=== PATIENT | female | born 1970 | race African-American/Black ===

== ENCOUNTER 2016-10-10 07:36 | Emergency (ER) | payer OTHER ==
[~2016-10-10] VITALS: Ht 175.3 cm; Wt 127.0 kg
[2016-10-10 07:38] VITALS: BP 150/89; PULSE 87; RESP 13; TEMP 98.2; O2SAT 99
[2016-10-10] MEDS ORDERED: SODIUM CHLOR 0.9% 1000 ML INJ 1,000 ML IV ONE (07:51)
--- NOTE | 2016-10-10 07:56 | PD ---
HPI Chief Complaint: Back/ Neck Pain or Injury Time Seen by Provider: 07:45 Travel History International Travel<30 days: No Contact w/Intl Traveler<30days: No Traveled to known affect area: No History of Present Illness HPI This is a 46-year-old female presents for evaluation of left-sided lower back pain. Symptoms started spontaneously one week ago. There is no specific mechanism injury. She does report that she works as a [employer], has to do a lot of bending and lifting and pulling and pushing. 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 She denies abdominal pain, nausea or vomiting, fevers or chills, diarrhea or constipation, dysuria, hematuria, increased urinary frequency, bowel or bladder incontinence, saddle anesthesia, radicular symptoms. She tried using some ibuprofen and Flexeril yesterday however the symptoms persisted which prompted evaluation. She has no other complaints at this time. [facility] Past Medical History Medical History: Denies Significant Hx ?: Not Social History Alcohol Use: No Tobacco Use: Yes Allergies-Medications (Allergen,Severity, Reaction): Coded Allergies: No Known Allergies (Unverified , 10/01/16) Reported Meds & Prescriptions Reported Meds & Active Scripts Active Flexeril (Cyclobenzaprine HCl) 5 Mg Tab 5 Mg PO TID 7 Days Ibuprofen 800 Mg Tab 800 Mg PO Q6HR PRN Lidocaine Patch 12 HR (Lidocaine) 5 % Patch 1 Patch TOPICAL DAILY PRN Remove patch after 12 hours Keflex (Cephalexin) 500 Mg Cap 500 Mg PO Q12H 7 Days Reported Ibuprofen 600 Mg Tab 600 Mg PO Q6H PRN Review of Systems Except as stated in HPI: all other systems reviewed are Neg Physical Exam Narrative GENERAL: Well-developed well-nourished female in no acute distress SKIN: Warm and dry. HEAD: Atraumatic. Normocephalic. EYES: Pupils equal and round. No scleral icterus. No injection or drainage. ENT: No nasal bleeding or discharge. Mucous membranes pink and moist. NECK: Trachea midline. No JVD. CARDIOVASCULAR: Regular rate and rhythm. No murmur appreciated. RESPIRATORY: No accessory muscle use. Clear to auscultation. Breath sounds equal bilaterally. GASTROINTESTINAL: Abdomen soft, non-tender, nondistended. Hepatic and splenic margins not palpable. No palpable pulsatile masses. MUSCULOSKELETAL: No obvious deformities. Full muscle strength in lower extremities, there is no reproducible tenderness to palpation along the cervical thoracic or lumbar midline spine, no CVA tenderness or paravertebral tenderness to palpation. NEUROLOGICAL: Awake and alert. No obvious cranial nerve deficits. Motor grossly within normal limits. Normal speech. PSYCHIATRIC: Appropriate mood and affect; insight and judgment normal. Data Data Last Documented VS Vital Signs Date Time Temp Pulse Resp B/P (MAP) Pulse Ox O2 Delivery O2 Flow Rate FiO2 10/10/16 07:38 98.2 87 13 150/89 (109) 99 Orders Orders Complete Blood Count With Diff (10/10/16 07:51) Comprehensive Metabolic Panel (10/10/16 07:51) Urinalysis - C+S If Indicated (10/10/16 07:51) Ct Abd/Pel W/O Iv Contrast (10/10/16 07:51) Iv Access Insert/Monitor (10/10/16 07:51) Ketorolac Inj (Toradol Inj) (10/10/16 08:00) Sodium Chlor 0.9% 1000 Ml Inj (Ns 1000 M (10/10/16 07:51) Urine Culture (10/10/16 08:00) Cephalexin (Keflex) (10/10/16 09:15) Labs Laboratory Tests Test 10/10/16 08:00 10/10/16 08:10 Urine Color YELLOW Urine Turbidity HAZY Urine pH 6.0 Urine Specific [place] 1.043 Urine Protein 30 mg/dL Urine Glucose (UA) NEG mg/dL Urine Ketones TRACE mg/dL Urine Occult Blood NEG Urine Nitrite NEG Urine Bilirubin NEG Urine Urobilinogen 4.0 MG/DL Urine Leukocyte Esterase LARGE Urine RBC LESS THAN 1 /hpf Urine WBC 5 /hpf Urine Squamous Epithelial Cells 9 /hpf Urine Bacteria MOD /hpf Urine Mucus FEW /lpf Microscopic Urinalysis Comment CULTURE INDICATED White Blood Count 5.8 TH/MM3 Red Blood Count 4.67 MIL/MM3 Hemoglobin 8.5 GM/DL Hematocrit 30.1 % Mean Corpuscular Volume 64.4 FL Mean Corpuscular Hemoglobin 18.2 PG Mean Corpuscular Hemoglobin Concent 28.3 % Red Cell Distribution Width 20.3 % Platelet Count 562 TH/MM3 Mean Platelet Volume 6.9 FL Neutrophils (%) (Auto) 39.1 % Lymphocytes (%) (Auto) 48.0 % Monocytes (%) (Auto) 8.4 % Eosinophils (%) (Auto) 3.6 % Basophils (%) (Auto) 0.9 % Neutrophils # (Auto) 2.3 TH/MM3 Lymphocytes # (Auto) 2.8 TH/MM3 Monocytes # (Auto) 0.5 TH/MM3 Eosinophils # (Auto) 0.2 TH/MM3 Basophils # (Auto) 0.1 TH/MM3 CBC Comment DIFF FINAL Differential Comment Blood Urea Nitrogen 13 MG/DL Creatinine 0.67 MG/DL Random Glucose 91 MG/DL Total Protein 8.1 GM/DL Albumin 3.7 GM/DL Calcium Level 8.9 MG/DL Alkaline Phosphatase 92 U/L Aspartate Amino Transf (AST/SGOT) 20 U/L Alanine Aminotransferase (ALT/SGPT) 22 U/L Total Bilirubin 0.6 MG/DL Sodium Level 139 MEQ/L Potassium Level 3.8 MEQ/L Chloride Level 107 MEQ/L Carbon Dioxide Level 26.3 MEQ/L Anion Gap 6 MEQ/L Estimat Glomerular Filtration Rate 114 ML/MIN [facility] Medical Decision Making Medical Screen Exam Complete: Yes Emergency Medical Condition: Yes Medical Record Reviewed: Yes Interpretation(s) CT abdomen and pelvis CONCLUSION: 1. Renal cysts. 2. Degenerative changes of the spine. 3. Fat-containing umbilical hernia. Rectus diastasis. CBC hemoglobin 8.5 CMP unremarkable UA Differential Diagnosis Lumbar strain versus spasm versus ureteral stone versus pyelonephritis versus retroperitoneal hematoma versus fracture Narrative Course This is a 46-year-old female who presents with left lower back pain for 1 week. No specific mechanism of injury but she works as a [employer] which requires a lot of heavy lifting/pushing/pulling. On examination she seems to have some left lower back/left flank pain primarily. Plan is for basic lab work, urinalysis, CT abdomen and pelvis. She was given IV Toradol and fluids. Laboratory imaging studies have been reviewed. CT abdomen and pelvis is reassuring. Her hemoglobin is 8.5. She has no known history of anemia however she does not get regular blood work as outpatient. She does not seem to be symptomatic from this. She is encouraged to follow-up with her primary care physician for more of a workup for her microcytic anemia. Her urinalysis reveals large leukocytes with moderate bacteria, reflex culture however there is a large number of squamous epithelial cells certainly suggesting contamination. Pending culture results the patient will be started on Keflex. She is stable for discharge. Diagnosis Primary Impression: Lumbar strain Qualified Codes: S39.012A - Strain of muscle, fascia and tendon of lower back , initial encounter Additional Impressions: Pyuria Anemia Qualified Codes: D64.9 - Anemia, unspecified Additional Instructions: Medication as prescribed. Take ibuprofen with meals. Do not drive or drink alcohol when taking Flexeril. As discussed, your hemoglobin level was 8.5. Follow up close with primary care physician for more of an outpatient workup. Return for any emergent medical conditions. Med/Other Pt SpecificInfo: Prescription(s) given Scripts Cyclobenzaprine (Flexeril) 5 Mg Tab 5 MG PO TID for Muscle Spasm for 7 Days, #90 TAB 0 Refills Prov: Soumya Eason DO 10/10/16 Ibuprofen (Ibuprofen) 800 Mg Tab 800 MG PO Q6HR Y for PAIN, #40 TAB 0 Refills Prov: Soumya Eason DO 10/10/16 Lidocaine Patch 12 HR (Lidocaine Patch 12 HR) 5 % Patch 1 PATCH TOPICAL DAILY Y for PAIN, #1 BOX 0 Refills Remove patch after 12 hours Prov: Soumya Eason DO 10/10/16 Cephalexin (Keflex) 500 Mg Cap 500 MG PO Q12H for Infection for 7 Days, CAP 0 Refills Prov: Soumya Eason DO 10/10/16 Disposition: 01 DISCHARGE HOME Condition: Stable Krishan Gardner Oct 10, 2016 07:56
[2016-10-10] MEDS ORDERED: KETOROLAC TROMETHAMINE 30 MG/ML (IVP) VIAL IVP ONE (08:00)
[2016-10-10 08:19] LABS: AUTOMATED NEUTROPHIL # 2.3 TH/MM3 (1.8-7.7); BASOPHIL # 0.1 TH/MM3 (0-0.2); BASOPHIL % 0.9 % (0.0-2.0); EOSINOPHIL # 0.2 TH/MM3 (0-0.4); EOSINOPHIL % 3.6 % (0.0-4.0); HEMATOCRIT 30.1 % (35.0-46.0); HEMO FLAGS DIFF FINAL; LYMPHOCYTE # 2.8 TH/MM3 (1.0-4.8); MEAN CELL VOLUME 64.4 FL (80.0-100.0); MEAN CORPUSCULAR HEMOGLOBIN 18.2 PG (27.0-34.0); MONO % 8.4 % (0.0-8.0); NEUT % 39.1 % (16.0-70.0); PLATELET COUNT 562 TH/MM3 (150-450); RED BLOOD COUNT 4.67 MIL/MM3 (4.00-5.30); RED CELL DISTRIBUTION WIDTH 20.3 % (11.6-17.2); WHITE BLOOD COUNT 5.8 TH/MM3 (4.0-11.0)
[2016-10-10] MEDS ORDERED: IBUP-232 PO (08:21)
[2016-10-10 08:23] LABS: MEAN CORPUSCULAR HGB CONC 28.3 % (32.0-36.0)
[2016-10-10 08:29] LABS: BACTERIA, URINE MOD /hpf; BLOOD, URINE NEG (NEG); COMMENT (UR) CULTURE INDICATED; CULTURE IF INDICATED CULTURE INDICATED; GLUCOSE,URINE NEG (NEG); KETONE, URINE TRACE mg/dL (NEG); MUCUS URINE FEW /lpf (OCC); NITRITE,URINE NEG (NEG); SQUAMOUS EPITHELIAL CELL URINE 9 /hpf (0-5); URINE COLOR YELLOW (YELLW/STRAW)
[2016-10-10 08:39] LABS: ALT (GPT) 22 U/L (10-53); ANION GAP 6 MEQ/L (5-15); AST (GOT) 20 U/L (15-37); BICARBONATE 26.3 MEQ/L (21.0-32.0); BLOOD UREA NITROGEN 13 MG/DL (7-18); CHLORIDE 107 MEQ/L (98-107); GLOMERULAR FILTRATION RATE 114 ML/MIN (>89); POTASSIUM 3.8 MEQ/L (3.5-5.1); SODIUM (NA) 139 MEQ/L (136-145)
[2016-10-10 08:42] LABS: ALKALINE PHOSPHATASE 92 U/L (45-117); TOTAL BILIRUBIN ADULT 0.6 MG/DL (0.2-1.0)
--- NOTE | 2016-10-10 08:53 | RADRPT ---
EXAM DATE/TIME: 10/10/2016 08:28 [place] COMPARISON: No previous studies available for comparison. INDICATIONS : Lower back pain for three days. ORAL CONTRAST: No oral contrast ingested. RADIATION DOSE: 32.88 CTDIvol (mGy) ; Patient body habitus MEDICAL HISTORY : None SURGICAL HISTORY : Tubal ligation. ENCOUNTER: Initial ACUITY: 1 day PAIN SCALE: 9/10 LOCATION: Bilateral flank TECHNIQUE: Volumetric scanning of the abdomen and pelvis was performed. Using automated exposure control and ad justment of the mA and/or kV according to patient size, radiation dose was kept as low as reasonably achievable to obtain optimal diagnostic quality images. DICOM format image data is available electro nically for review and comparison. FINDINGS: Lung bases are clear. Moderate facet hypertrophic changes and degenerative disc disease of the lower lumbar spine. Liver, gallbladder, spleen, pancreas, adrenal glands are unremarkable. There is a small hiatal hernia. 1 cm left midpole renal cyst posteriorly. Right upper pole renal cyst measuring 6.2 c m. There is mild diastasis of the rectus abdominis musculature with a fat containing umbilical hernia identified. The urinary bladder, uterus and adnexa are unremarkable. No obstruction, free fluid or f ree air. No inflammatory changes are identified. CONCLUSION: 1. Renal cysts. 2. Degenerative changes of the spine. 3. Fat-containing umbilical hernia. Rectus diastasis. Jeronimo Miner MD on October 10, 2016 at 8:47 Board Certified Radiologist. This report was verified electronically.
[2016-10-10] MEDS ORDERED: LIDO1PAD52 TOPICAL (09:13)
[2016-10-10] MEDS ORDERED: IBUP800T23 PO (09:13)
[2016-10-10] MEDS ORDERED: CYCL5TAB PO (09:13)
[2016-10-10] MEDS ORDERED: CEPH-460 PO (09:13)
[2016-10-10] MEDS ORDERED: CEPHALEXIN MONOHYDRATE 500 MG CAP PO ONE (09:15)
== END 2016-10-10 09:44 | disposition home or self-care (01) ==
LOC: NEPK 07:36
DX: S39.012A Strain of muscle, fascia and tendon of lower back, initial encounter (principal); N39.0 Urinary tract infection, site not specified; B96.89 Other specified bacterial agents as the cause of diseases classified elsewhere; D64.9 Anemia, unspecified; X58.XXXA Exposure to other specified factors, initial encounter
CPT/HCPCS: 74176; 80053; 81001; 85025; 87086; 96374; 99285; J1885; J7030